=== PATIENT | male | born 1970 | race Two or more races ===

== ENCOUNTER → 2025-06-27 | Outpatient (CLI) | payer MEDICAID, SELFPAY ==
--- NOTE | 2025-06-27 09:36 | XR_ITS ---
Examination: Abdomen AP single view Technique: AP portable supine abdomen, single view Exam date and time: June 27, 2025, 0939 hours INDICATIONS: History flank pain kidney stones 2 years. FINDINGS: Suspicious for subcentimeter soft multiple left renal calculi Surgical clips upper right abdomen Nonobstructive bowel gas pattern IMPRESSION: Suspicious for subcentimeter soft multiple left renal calculi
== END | disposition home or self-care (01) ==
LOC: CDIM 09:28
PROVIDERS: PCP Physician Assistant; Referring Provider Surgery; Visit Provider Surgery
DX: N20.0 Calculus of kidney (principal)
CPT/HCPCS: 74018